=== PATIENT | female | born 1975 | race Caucasian/White ===

== ENCOUNTER 2023-04-10 18:11 | Emergency (ER) | payer MEDICARE ==
[2023-04-10 19:57] VITALS: TEMP 97.8; O2SAT 96
[2023-04-10] MEDS ORDERED: Sodium Chloride 0.9% 1000 ML 1,000 ML ONE (20:06)
[2023-04-10] MEDS ORDERED: TYLENOL 325 MG ONE (20:06)
[2023-04-10 20:07] LABS: Absolute Neutrophil Ct (ANC) 7.04 x10^3/uL (1.4-6.9); BASOPHIL % 1.3 % (0.0-0.4); Basophil (Absolute #) 0.15 x10^3/uL (0-0.4); Eosinophil % 2.3 % (0.00-5.0); Eosinophil (Absolute #) 0.27 x10^3/uL (0-0.5); Hematocrit 43.3 % (35-47); Hemoglobin 13.8 g/dL (12.0-16.0); IMMATURE GRAN # 0.03 x10^3u/L (0.00-0.03); IMMATURE GRAN % 0.3 % (0.00-0.4); Lymphocyte (Absolute #) 3.33 x10^3/uL (1.0-4.6); Lymphocytes % 28.7 % (24.0-44.0); Mean Corpuscular Hemoglobin 30.6 pg (26-32); Mean Corpuscular Hgb Concent. 31.9 g/dL (32-36); Mean Platelet Volume 11.2 fL (7.5-11.0); Monocyte (Absolute #) 0.77 x10^3/uL (0.0-1.3); Monocytes % 6.6 % (0.0-12.0); Neutrophil % 60.8 % (36.0-66.0); Platelet Count 410 x10^3/uL (150-450); Red Blood Count 4.51 x10^6/uL (4.1-5.4); Red Cell Distribution Width 15.1 % (11.5-14.0); White Blood Count 11.6 x10^3/uL (4.0-10.5)
[2023-04-10] MEDS: Sodium Chloride 0.9% 1000 ML 1,000 ML IV STA (20:08)
[2023-04-10] MEDS: TYLENOL 325 MG PO ONE (20:09)
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
[2023-04-10 20:30] LABS: ALBUMIN 4.3 g/dL (3.5-5.0); ANION GAP 12.4 MEQ/L (5-15); BILIRUBIN,TOTAL 0.5 mg/dL (0.2-1.3); Calcium 9.8 mg/dL (8.4-10.2); Creatinine 1 1.71 mg/dL (0.52-1.04); EST GLOMERULAR FILTRATION RATE 36.3 ML/MIN; Potassium 4.3 mmol/L (3.5-5.1); Total Protein 7.5 g/dL (6.3-8.2)
[2023-04-10 21:22] LABS: HCG URINE TEST NEGATIVE (NEGATIVE)
[2023-04-10 21:31] LABS: ADD URINE CULTURE? NO (NO); Appearance Clear (Clear); Bacteria None Seen /HPF (None Seen); Bilirubin Negative (Negative); Blood Small (Negative); Epithelial Cells None Seen /HPF (None Seen); Glucose, Urine Negative (Negative); Hyaline Casts NONE SEEN /LPF (0-2); Ketones Negative (Negative); Leukocyte Esterase Negative (Negative); Nitrite Negative (Negative); Ph 7.5 (4.6-8.0); Protein,Urine Dip Negative (Negative); RBC 0-2 /HPF (0-5); Urobilinogen 0.2 mg/dL (0.2)
[2023-04-10 21:38] LABS: Barbiturate,Urine NEGATIVE (NEGATIVE); Benzodiazepine,Urine NEGATIVE (NEGATIVE); Cocaine,Urine NEGATIVE (NEGATIVE); Methadone,Urine NEGATIVE (NEGATIVE); Opiate,Urine NEGATIVE (NEGATIVE); PCP,Urine NEGATIVE (NEGATIVE); THC,Urine POSITIVE (NEGATIVE)
[2023-04-10 22:05] LABS: Amphetamine,Urine POSITIVE (NEGATIVE)
[2023-04-10 22:52] LABS: CHLAMYDIA DNA NOT DETECTED (NEGATIVE); GC DNA Probe NOT DETECTED (NEGATIVE)
[2023-04-10 23:56] VITALS: BP 179/125; PULSE 64; RESP 17
== END 2023-04-11 00:35 | disposition home or self-care (01) ==
LOC: ED 18:11
DX: N17.9 Acute kidney failure, unspecified (principal); F19.10 Other psychoactive substance abuse, uncomplicated; E86.0 Dehydration; R31.9 Hematuria, unspecified; M79.10 Myalgia, unspecified site; I10 Essential (primary) hypertension; Z28.310 Unvaccinated for COVID-19; Z72.0 Tobacco use
CPT/HCPCS: 36000; 36415; 80053; 80307; 81001; 81025; 85025; 87491; 87591; 99284; A9270-GY